=== PATIENT | male | born 1980 | race Two or more races ===

== ENCOUNTER 2020-10-11 09:05 | Emergency (ER) | payer OTHER ==
[~2020-10-11] VITALS: Ht 172.7 cm; Wt 93.4 kg
[2020-10-11 09:10] VITALS: BP 106/61
[2020-10-11] MEDS ORDERED: KETOROLAC TROMETHAMINE 15 MG/ML VIAL ONE (09:15)
[2020-10-11] MEDS ORDERED: CYCLOBENZAPRINE 10 MG TABLET ONE (09:15)
[2020-10-11] MEDS ORDERED: ACETAMINOPHEN 325 MG TABLET ONE (09:18)
[2020-10-11] MEDS: KETOROLAC TROMETHAMINE INJ 30 MG/ML VIAL IM ONE (09:23)
[2020-10-11] MEDS: ACETAMINOPHEN 325 MG TABLET PO ONE (09:23)
[2020-10-11] MEDS: CYCLOBENZAPRINE 10 MG TABLET PO ONE (09:23)
--- NOTE | 2020-10-11 09:24 | NUR ---
Patient handcuffed to bed, pd at bedside. Medications provided.
[2020-10-11] MEDS ORDERED: CYCL5TAB PO (09:40)
[2020-10-11] MEDS ORDERED: IBUP-1957 PO (09:40)
[2020-10-11] MEDS ORDERED: NALO4SPR NS (09:40)
--- NOTE | 2020-10-11 10:06 | NUR ---
back support provided to patient. Patient discharged to PD in stable condition. Written and verbal after care instructions given. Patient verbalizes understanding of instruction.
== END 2020-10-11 10:07 ==
LOC: ER 09:10
DX: M54.5 Low back pain (principal); F10.10 Alcohol abuse, uncomplicated; Y90.9 Presence of alcohol in blood, level not specified; Z02.89 Encounter for other administrative examinations; W17.89XA Other fall from one level to another, initial encounter; Y93.89 Activity, other specified; Y92.89 Other specified places as the place of occurrence of the external cause; Y99.8 Other external cause status
CPT/HCPCS: 96372; 99283; J1885

== ENCOUNTER 2024-03-15 23:48 | Inpatient (IN) | payer MEDICAID, OTHER ==
[~2024-03-15] VITALS: Ht 177.8 cm; Wt 58.5 kg
[~2024-03-15 23:48] MED LIST: AMOX-430 PO; CYCL5TAB PO; IBUP-1957 PO; NALO4SPR NS
[2024-03-16] VITALS (7 sets, daily range): BP systolic 90–110; BP diastolic 57–80; TEMP 98.1–98.6; O2SAT 95–97
[2024-03-16] MEDS ORDERED: Z GUARD REMEDY 4 OZ OINT TP PRN
[2024-03-16] MEDS ORDERED: ACETAMINOPHEN 325 MG TABLET PO PRN
[2024-03-16] MEDS ORDERED: ONDANSETRON HCL/PF 4 MG/2 ML VIAL IVP PRN
[2024-03-16] MEDS ORDERED: MAG HYDROX/AL HYDROX/SIMETH 30 ML UDC PO PRN
[2024-03-16] MEDS ORDERED: MAGNESIUM HYDROXIDE 30 ML UDC PO PRN
[2024-03-16] MEDS ORDERED: TRAZ-257 PO (00:43)
[2024-03-16] MEDS ORDERED: FAMO20TA8 PO (00:43)
[2024-03-16] MEDS ORDERED: BUPR8TAB4 SL (00:43)
[2024-03-16] MEDS ORDERED: METH-649 PO (00:43)
[2024-03-16 07:36] LABS: INR 1.06 (0.91-1.10); PARTIAL THROMBOPLASTIN TIME 27.3 SEC (24.3-34.3); PROTHROMBIN TIME 11.2 SECS (9.2-11.1)
[2024-03-16 07:42] LABS: BASOPHILS # (AUTO) 0.1 K/uL (0.0-0.2); BASOPHILS % (AUTO) 0.7 % (0.0-2.0); EOSINOPHILS # (AUTO) 0.2 K/uL (0.0-0.7); EOSINOPHILS % (AUTO) 2.7 % (0.0-6.0); HEMATOCRIT 27 % (39-51); HEMOGLOBIN 8.5 g/dL (13.5-17.5); LYMPHOCYTES # (AUTO) 1.6 K/uL (0.8-4.8); LYMPHOCYTES % (AUTO) 23.3 % (20.0-44.0); MEAN CORPUSCULAR HEMOGLOBIN 22 PG (26.0-33.0); MEAN CORPUSCULAR HGB CONC 31 g/dl (31.0-36.0); MEAN CORPUSCULAR VOLUME 71 fL (80-96); MONOCYTES # (AUTO) 0.7 K/uL (0.1-1.30); MONOCYTES % (AUTO) 9.5 % (2.0-12.0); NEUTROPHILS # (AUTO) 4.5 K/uL (1.8-8.9); NEUTROPHILS % (AUTO) 63.8 % (43.0-81.0); PLATELET COUNT (AUTO) 509 K/uL (150-450); RED BLOOD CELL COUNT(AUTO) 3.86 MIL/uL (4.5-6.0); WHITE BLOOD COUNT (AUTO) 7.1 K/uL (4.3-11.0)
[2024-03-16 07:48] LABS: ALBUMIN 2.3 g/dL (3.4-5.0); CALCIUM, SERUM 9.4 mg/dL (8.5-10.1); CARBON DIOXIDE 27 mmol/L (21-32); CHLORIDE 103 mmol/L (98-107); CREATININE 0.5 mg/dL (0.6-1.3); GLUCOSE 98 mg/dL (74-106); MAGNESIUM 1.9 mg/dL (1.8-2.4); NT-PRO BNP 156 pg/mL (0-125); PHOSPHORUS 4.5 mg/dL (2.5-4.9); POTASSIUM 3.9 mmol/L (3.5-5.1); SODIUM SERUM 135 mmol/L (136-145); UREA NITROGEN, BLOOD 19 mg/dL (7-18)
[2024-03-16 07:51] LABS: CHOLESTEROL 119 mg/dL (<200); HDL CHOLESTEROL 30 mg/dL (40-60); LDL 80 mg/dL (0-99); TRIGLYCERIDES 34 mg/dL (30-150)
[2024-03-16] MEDS ORDERED: QUET50TA PO (08:07)
[2024-03-16] MEDS ORDERED: ACET-2812 PO (08:07)
[2024-03-16] MEDS ORDERED: PROM12.513 PO (08:07)
[2024-03-16] MEDS ORDERED: HYDR-4303 PO (08:07)
[2024-03-16] MEDS: PIPERACILLIN /TAZOBACTAM 4.5 G in IV D5W 50 ML IV ONE (14:18)
[2024-03-16 16:26] LABS: APPEARANCE,URINE CLOUDY (CLEAR); BILIRUBIN,URINE NEGATIVE (NEGATIVE); BLOOD, URINE NEGATIVE Ery/uL (NEGATIVE); COLOR,URINE YELLOW (YELLOW); KETONES,URINE NEGATIVE (NEGATIVE); LEUKOCYTE ESTERASE ,URINE NEGATIVE (NEGATIVE); NITRITE, URINE NEGATIVE (NEGATIVE); PROTEIN,URINE NEGATIVE (NEGATIVE); UGLUCOSE NEGATIVE (NEGATIVE); UROBILINOGEN,URINE 0.2 EU/dL (0.2)
[2024-03-16 16:53] LABS: ADD URINE CULTURE YES; BACTERIA,URINE 2+ /HPF (None Seen); RBC,URINE 0-2 /HPF (0-2); SQUAMOUS EPITHELIAL CELL,UR 0-2 /HPF (None Seen); WBC,URINE NONE SEEN /HPF (0-3)
[2024-03-16 16:54] LABS: URIC ACID CRYSTALS,URINE Few /HPF (None Seen); URINE AMORPHOUS URATE Moderate /HPF (None Seen)
[2024-03-16] MEDS: PIPERACILLIN /TAZOBACTAM 3.375 G in IV D5W 100 ML IV SCH (20:39)
[2024-03-17] VITALS: BP 97/59; TEMP 98.4; O2SAT 94
[2024-03-17 04:00] VITALS: BP 93/56; TEMP 97.9; O2SAT 95
[2024-03-17 05:00] VITALS: BP 93/56; TEMP 97.9; O2SAT 95
[2024-03-17 07:00] VITALS: BP 102/76; TEMP 97.9; O2SAT 97
[2024-03-17 11:30] VITALS: BP 99/65; TEMP 98.1; O2SAT 93
[2024-03-17] MEDS ORDERED: BUPR2TAB3 SL (13:24)
[2024-03-17 20:00] VITALS: BP 98/65; TEMP 98.8; O2SAT 95
[2024-03-18] VITALS: BP 100/62; TEMP 97.8; O2SAT 96
[2024-03-18 04:00] VITALS: BP 90/54; TEMP 98; O2SAT 96
[2024-03-18 07:00] VITALS: BP 101/84; TEMP 98.1; O2SAT 98
[2024-03-18 09:38] LABS: BASOPHILS % (AUTO) 0.4 % (0.0-2.0); EOSINOPHILS # (AUTO) 0.1 K/uL (0.0-0.7); EOSINOPHILS % (AUTO) 1.5 % (0.0-6.0); HEMATOCRIT 31 % (39-51); HEMOGLOBIN 9.7 g/dL (13.5-17.5); LYMPHOCYTES # (AUTO) 1.5 K/uL (0.8-4.8); LYMPHOCYTES % (AUTO) 17.1 % (20.0-44.0); MEAN CORPUSCULAR HEMOGLOBIN 23 PG (26.0-33.0); MEAN CORPUSCULAR HGB CONC 31 g/dl (31.0-36.0); MEAN CORPUSCULAR VOLUME 72 fL (80-96); MONOCYTES # (AUTO) 0.6 K/uL (0.1-1.30); MONOCYTES % (AUTO) 6.4 % (2.0-12.0); NEUTROPHILS # (AUTO) 6.6 K/uL (1.8-8.9); NEUTROPHILS % (AUTO) 74.6 % (43.0-81.0); PLATELET COUNT (AUTO) 585 K/uL (150-450); RED CELL DISTRIBUTION WIDTH 16.7 % (11.5-15.0); WHITE BLOOD COUNT (AUTO) 8.9 K/uL (4.3-11.0)
[2024-03-18 09:48] LABS: CALCIUM, SERUM 9.5 mg/dL (8.5-10.1); CREATININE 0.6 mg/dL (0.6-1.3); POTASSIUM 4.2 mmol/L (3.5-5.1)
[2024-03-18 10:05] LABS: INR 1.09 (0.91-1.10); PARTIAL THROMBOPLASTIN TIME 28.1 SEC (24.3-34.3); PROTHROMBIN TIME 11.5 SECS (9.2-11.1)
[2024-03-18] MEDS ORDERED: Medication Not On Formulary EA (Acetaminophen (Acetaminophen Er) 650 MG) PO PRN (10:30)
[2024-03-18] MEDS: BUPRENORPHINE HCL 2 MG TAB.SUBL SL SCH (10:35)
[2024-03-18] MEDS ORDERED: PROMETHAZINE HCL 25 MG TABLET PO PRN (11:00)
[2024-03-18] MEDS ORDERED: FENTANYL PF 100MCG/2ML AMPUL ONE (12:14)
[2024-03-18] MEDS ORDERED: MIDAZOLAM HCL 2 MG/2ML VIAL ONE (12:14)
[2024-03-18] MEDS: METHOCARBAMOL (750MG) 750 MG TABLET PO SCH (13:27)
[2024-03-18 16:00] VITALS: BP 95/73; TEMP 97.9; O2SAT 93
[2024-03-18] MEDS: QUETIAPINE FUMARATE 25 MG TABLET PO SCH (16:56)
[2024-03-18] MEDS: FAMOTIDINE (20 MG) 20 MG TABLET PO SCH (16:57)
[2024-03-18 20:00] VITALS: BP 104/74; TEMP 97.9; O2SAT 96
[2024-03-18] MEDS: TRAZODONE 50 MG TABLET PO SCH (22:00)
[2024-03-19] VITALS: BP 97/68; TEMP 97.5; O2SAT 94
[2024-03-19 08:00] VITALS: BP 96/76; TEMP 98.2; O2SAT 97
[2024-03-19] MEDS: ENSURE ENLIVE 237 ML LIQUID (VANILLA) PO SCH (12:51)
[2024-03-19 16:00] VITALS: BP 91/65; TEMP 98.3; O2SAT 95
[2024-03-19 20:00] VITALS: BP 96/68; TEMP 98.8; O2SAT 98
[2024-03-20] VITALS: BP 97/66; TEMP 98.8; O2SAT 96
[2024-03-20 04:00] VITALS: BP 91/65; TEMP 97.7; O2SAT 96
[2024-03-20 12:00] VITALS: BP 81/58; TEMP 98.4; O2SAT 97
[2024-03-20 16:00] VITALS: BP 81/58; TEMP 98.2; O2SAT 96
[2024-03-20 19:47] VITALS: BP 102/66; TEMP 99.1; O2SAT 95
[2024-03-20 23:38] VITALS: BP 92/62; TEMP 98.6; O2SAT 95
[2024-03-21 04:21] VITALS: BP 92/64; TEMP 99.3; O2SAT 95
[2024-03-21 08:00] VITALS: BP 103/71; TEMP 97.9; O2SAT 100
[2024-03-21] MEDS ORDERED: IBUP-1953 PO (10:09)
[2024-03-22 13:08] LABS: *ANA ANTI-CENTROMERE B AB <0.2 AI (0.0-0.9); *ANA ANTI-DNA(DS) AB, QN 7 IU/mL (0-9); *ANA ANTI-JO-1 <0.2 AI (0.0-0.9); *ANA ANTICHROMATIN ANTIBODY <0.2 AI (0.0-0.9); *ANA RNP ANTIBODIES 3.8 AI (0.0-0.9); *ANA SJOGREN'S ANTI-SS-A <0.2 AI (0.0-0.9); *ANA SJOGREN'S ANTI-SS-B <0.2 AI (0.0-0.9); *ANAANTI-SCLERODERMA-70 AB <0.2 AI (0.0-0.9); *ANASMITH AB <0.2 AI (0.0-0.9)
== END 2024-03-21 18:06 | disposition home or self-care (01) | DRG 207 ==
LOC: TELE 23:50
PROVIDERS: ADMIT Nurse Practitioner Family; ATTEND Internal Medicine
DX: I31.39 Other pericardial effusion (noninflammatory) (principal); I42.9 Cardiomyopathy, unspecified; E44.1 Mild protein-calorie malnutrition; D63.8 Anemia in other chronic diseases classified elsewhere; E88.09 Other disorders of plasma-protein metabolism, not elsewhere classified; G89.29 Other chronic pain; K21.9 Gastro-esophageal reflux disease without esophagitis; Z87.01 Personal history of pneumonia (recurrent); Z53.9 Procedure and treatment not carried out, unspecified reason; Z89.429 Acquired absence of other toe(s), unspecified side; Z79.899 Other long term (current) drug therapy; R79.89 Other specified abnormal findings of blood chemistry; Z74.09 Other reduced mobility; V89.2XXS Person injured in unspecified motor-vehicle accident, traffic, sequela
CPT/HCPCS: 36415; 71045-TC; 80048-TC; 80061-TC; 81001; 82040-TC; 83735-TC; 83880; 84100-TC; 84484-TC; 85025-TC; 85610-TC; 85652-TC; 85730-TC; 86140-TC; 86225; 86235; 86850-TC; 87081-TC; 87086-TC; 93307-TC; 97110-TC; 97530-TC; 97535-TC; A4223; A6253; G0378; J2250; J2543; J3010; J7050; J7060; Q0169